=== PATIENT | male | born 1965 | race Hispanic/Latino ===

== ENCOUNTER 2017-12-25 00:03 | Emergency (ER) | payer MEDICAID ==
[2017-12-25 00:20] VITALS: BP 132/75; PULSE 88; RESP 16; TEMP 97.8; O2SAT 99
--- NOTE | 2017-12-25 01:41 | ED PDOC ---
HPI: Chest Pain <Sultan Miah - Last Filed: 12/25/17 05:25> <Christiano Rothman - Last Filed: 12/25/17 06:39> Time Seen by Provider: 12/25/17 00:28 Chief Complaint (Nursing): Chest Pain Additional Complaint(s): 52 yo male pmhx asthma presents to ED c/o intermittent chest pain at rest x 1 week. Pt reports most recent left sided chest pain started yesterday(12/24/17) around 1 pm and has been steady since then. Reports pain (02/28), dull and non- radiating. Denies exacerbating or alleviating factors. Pt reports chronic non productive cough for many years. Denies nausea, vomiting, headache, dizziness, blurry vision or focal weakness. Denies any hx CAD or HTN. Pt smokes 10 cigarettes/day x 10 yrs. PMD: NONE( last seen a PMD 10 yrs ago) (Sultan Miah) Supervising Attending Note - Supervising Attending Note The Documented history was done by the: Physician Lusterer, Attending Physician The documented physical exam was done by the: Physician Lusterer, Attending Physician The documented procedures were done by the: Physician Lusterer, Attending Physician - Attestation: I have personally seen and examined this patient.: Yes I have fully participated in the care of the patient.: Yes I have reviewed all pertinent clinical information: Yes <Christiano Rothman - Last Filed: 12/25/17 06:39> Past Medical History - Medical History PMH: Asthma, Bronchitis - Surgical History Surgical History: Hernia Repair Other surgeries: Right knee surgery in ?2010 - Family History Family History: States: CAD (Mother: CAD and lung CA), Other - Social History Current smoker - smoking cessation education provided: Yes (10 cigarettes/day x 10 yrs) Alcohol: None Drugs: Denies <Sultan Miah - Last Filed: 12/25/17 05:25> Reviewed: Historical Data, Nursing Documentation, Vital Signs <Christiano Rothman - Last Filed: 12/25/17 06:39> Vital Signs: Last Vital Signs Temp 97.8 F 12/25/17 00:17 Pulse 88 12/25/17 00:17 Resp 16 12/25/17 00:17 BP 132/75 12/25/17 00:17 Pulse Ox 99 12/25/17 05:33 - Home Medications Home Medications: Ambulatory Orders Medication Instructions Recorded Naproxen 500 mg PO BID #20 tab 12/25/17 - Allergies Allergies/Adverse Reactions: Allergies Allergy/AdvReac Type Severity Reaction Status Date / Time No Known Allergies Allergy Verified 12/25/17 00:16 KARINA Risk Score for UA/NSTEMI - KARINA Risk Score Age > 64: NO 3 or more CAD Risk Factors: NO Known CAD (Stenosis greater than 50%): NO Aspirin use in past 7 days: NO Severe Angina: NO EKG ST changes greater than 0.5mm: NO Positive Cardiac Marker: NO KARINA Score: 0 Risk %: 5% <Christiano Rothman - Last Filed: 12/25/17 06:39> Wells Criteria for PE - Wells Criteria for Pulmonary Embolism Clinical Signs and Symptoms of DVT: No P.E is #1 Diagnosis, or Equally Likely: No Heart Rate >100: No Immobilization at least 3 days;Surgery previous 4 weeks: No Previous, objectively diagnosed PE or DVT: No Hemoptysis: No Malignancy w/treatment within 6 months, or palliative: No Total Score: 0 <Christiano Rothman A - Last Filed: 12/25/17 06:39> Review of Systems Constitutional: Negative for: Fever, Chills Eyes: Negative for: Vision Change Cardiovascular: Negative for: Palpitations, Edema, Light Headedness Respiratory: Positive for: Cough. Negative for: Shortness of Breath, Wheezing Gastrointestinal: Negative for: Nausea, Vomiting Genitourinary Male: Negative for: Dysuria Musculoskeletal: Negative for: Arm Pain Neurological: Negative for: Weakness, Numbness, Headache, Dizziness <Sultan Miah - Last Filed: 12/25/17 05:25> ROS Statement: Except As Marked, All Systems Reviewed And Found Negative <Christiano Rothman - Last Filed: 12/25/17 06:39> Physical Exam - Physical Exam Appears: Positive for: No Acute Distress ENT: Positive for: Other (poor dentition) Neck: Positive for: Normal Cardiovascular/Chest: Positive for: Regular Rate, Rhythm, Other (Tender to palpation on left sided costochondral joints of ribs on 4-6). Negative for: Murmur Respiratory: Positive for: Rhonchi (diffuse rhonchi, no wheezing or crackles.) Gastrointestinal/Abdominal: Positive for: Normal Exam, Bowel Sounds, Soft. Negative for: Tenderness Extremity: Positive for: Normal ROM. Negative for: Pedal Edema, Calf Tenderness , Swelling Neurologic/Psych: Positive for: Alert, manager animal II-XII (grossly normal), Oriented <Sultan Miah - Last Filed: 12/25/17 05:25> - Laboratory Results Result Diagrams: 12/25/17 01:52 12/25/17 01:52 - ECG ECG: Positive for: Interpreted By Ar ECG Rhythm: Positive for: Normal QRS, Normal ST Segment O2 Sat by Pulse Oximetry: 99 - Radiology X-Ray: Interpreted by Ar X-Ray Interpretation: No Acute Disease <Sultan Miah - Last Filed: 12/25/17 05:25> - Laboratory Results Result Diagrams: 12/25/17 01:52 12/25/17 01:52 <Christiano Rothman - Last Filed: 12/25/17 06:39> - Progress ED Course And Treament: Assessment: 52 yo male pmh asthma presents to ED C/O intermittent chest pain x 1 week and chronic cough. Plan: EKG CXR TROPONIN I CBC BMP Case d/w ED attending Dr. Rothman Re-eval at 5:00 am on 12/25/17: Initial workup is WNL. Pt was sleeping comfortably at re-evaluation. Pt reports he still has chest pain. Pt was recommended to be admitted for 24 hours observation in telemetry for further evaluation. Pt declined to stay and signed out AMA. Pt understand the consequences of AMA including delaying in diagnosis, treatment and possible from delaying treatment. Pt was given naproxen 500mg po bid x 10 days. Pt was advised to return to ED if symptoms worsens. Case d/w ED attending physician Dr. Rothman (Sultan Miah) Disposition <Sultan Miah - Last Filed: 12/25/17 05:25> - Patient ED Disposition Is Patient to be Admitted: No Doctor Will See Patient In The: Office Counseled Patient/Family Regarding: Studies Performed, Diagnosis, Need For Followup - Disposition Disposition: Routine/Home Disposition Time: 05:08 <Christiano Rothman - Last Filed: 12/25/17 06:39> - Clinical Impression Clinical Impression: Chest pain, Left against medical advice - Disposition Referrals: [facility] [Outside] Condition: GOOD Additional Instructions: Return for worsening. Follow up with your PCP in 2-3 days. Prescriptions: Naproxen 500 mg PO BID #20 tab Instructions: Chest Pain (ED), Against Medical Advice (ED)
[2017-12-25 01:56] LABS: BASO # 0.1 K/uL (0.0-0.2); EOS # 0.4 K/uL (0.0-0.7); EOS % 3.9 % (0.0-4.0); HEMOGLOBIN 14.7 g/dL (12.0-18.0); LYMPH # 1.9 K/uL (1.0-4.3); LYMPH % 17.3 % (20.0-40.0); MEAN CELL VOLUME 92.1 fl (80.0-94.0); MEAN CORPUSCULAR HEMOGLOBIN 30.6 pg (27.0-31.0); MEAN CORPUSCULAR HGB CONC 33.3 g/dL (33.0-37.0); MEAN PLATELET VOLUME 8.8 fl (7.2-11.7); MONO # 0.8 K/uL (0.0-0.8); MONO % 7.6 % (0.0-10.0); NEUT # 7.5 K/uL (1.8-7.0); NEUT % 70.2 % (50.0-75.0); NRBC % 0.1 % (0.0-0.0); RBC 4.82 Mil/uL (4.40-5.90); RED CELL DISTRIBUTION WIDTH 13.5 % (11.5-14.5); WHITE BLOOD COUNT 10.7 K/uL (4.8-10.8)
[2017-12-25 02:09] LABS: BLOOD UREA NITROGEN 18 mg/dl (9-20); CALCIUM 9.4 mg/dL (8.4-10.2); GFR AFRICAN-AMERICAN > 60; GFR NON-AFRICAN AMERICAN > 60
--- NOTE | 2017-12-25 09:46 | RAD ---
HISTORY: intermittent chest pain x 1 week chronic cough COMPARISON: No prior. TECHNIQUE: Chest PA and lateral FINDINGS: LUNGS: No active pulmonary disease. PLEURA: No significant pleural effusion identified. No pneumothorax apparent. CARDIOVASCULAR: Normal. OSSEOUS STRUCTURES: No significant abnormalities. VISUALIZED UPPER ABDOMEN: Normal. OTHER FINDINGS: None. IMPRESSION: No active disease.
== END 2017-12-25 05:28 | disposition left against medical advice (07) ==
LOC: H.ER 00:03
DX: R07.9 Chest pain, unspecified (principal); F17.210 Nicotine dependence, cigarettes, uncomplicated